=== PATIENT | female | born 1980 ===

== ENCOUNTER → 2024-06-23 | Outpatient (REF) | payer OTHER | LOC: M LAB REF 09:51 | PROVIDERS: ATTEND Student in an Organized Health Care Education/Training Program | DX: R30.0 Dysuria (principal) ==

== ENCOUNTER → 2025-03-22 | Outpatient (REF) | payer OTHER | LOC: M LAB REF 18:08 | PROVIDERS: ATTEND Registered Nurse | DX: J02.9 Acute pharyngitis, unspecified (principal) ==